=== PATIENT | male | born 1985 | race Caucasian/White ===

== ENCOUNTER 2017-02-02 03:46 | Emergency (ER) | payer SELFPAY ==
--- NOTE | ~2017-02-02 | ER ---
PATIENT'S NAME: EZIO LEE [facility] AGE: 31 Y [address] ROOM: [place] [address] LOCATION: [facility] ADMIT DATE: 02/02/2017 ER/Outpatient Report DISCHARGE DATE: FAMILY PHYSICIAN: PHYSICIAN, NO ATTENDING PHYSICIAN: Isacc Rahman Admission date and time documented in the medical record. I saw the patient at 0400 hours. CHIEF COMPLAINT: Left ear pressure and head pressure. HISTORY OF PRESENT ILLNESS: This patient is a 31-year-old male, who comes in with left ear pressure that he has had for about a week. Tonight it seemed to be worse, involving the whole left side of his head. He feels dizzy, lightheaded and sleepy. The patient has been under a lot of stress with situational disturbances. He has been drinking alcohol tonight. No chest pain, shortness of breath, abdominal pain, nausea, vomiting, diarrhea, or urinary complaints. No headache, eyes, ears, nose, throat, neck, or spine pain. No recent colds, coughs, flus, fever, chills, or sweats. The patient has a history of neurocardiogenic syncope. No endocrine problems. No psych issues other than stress and anxiety. HOME MEDICATIONS: None. ALLERGIES: NONE. SOCIAL HISTORY: The patient smokes half a pack of cigarettes per day. Does drink alcohol. SIGNIFICANT PAST MEDICAL HISTORY: Tobacco abuse, neurocardiogenic syncope, esophageal stricture, anxiety, stress. OPERATIONS: Inguinal herniorrhaphy and esophageal dilatation. REVIEW OF SYSTEMS: All systems reviewed by me are negative with the exception of those discussed in the history of present illness. PHYSICAL EXAMINATION: PATIENT'S NAME: EZIO LEE [facility] AGE: 31 Y [address] ROOM: [place] [id number] LOCATION: [facility] ADMIT DATE: 02/02/2017 ER/Outpatient Report DISCHARGE DATE: FAMILY PHYSICIAN: PHYSICIAN, NO ATTENDING PHYSICIAN: Isacc Rahman VITAL SIGNS: Temperature 97.8, pulse 84, blood pressure 129/77, O2 saturation on room air is 96%. HEAD: Normocephalic. EYES: Extraocular muscles intact. PERRL. EARS: Right TM clear. Left canal is inflamed, swollen. Drums intact. NOSE: Clear. THROAT: Clear. TEETH AND JAW: Intact. NECK: No nuchal rigidity. No thyromegaly or cervical lymphadenopathy. SPINE: Negative. LUNGS: Clear. No rales, rhonchi, or wheezes. HEART: Regular. Pulses are palpable. ABDOMEN: Soft, nondistended, nontender. Good bowel tones. No organomegaly or abnormal mass palpable. EXTREMITIES: Moves all 4 extremities. No peripheral edema, cyanosis, or deformity. NEURO: Cranial nerves intact. No lateralized sign. The patient is awake, alert, cooperative. Motor and sensory intact. NIH Stroke scale is 0. VASCULAR: Intact. SKIN: Clear. DIAGNOSTIC STUDIES: Did draw some blood. Following the draw, the patient stated that he was deathly ill of needles, got sweaty, lightheaded, bradycardic and had a near syncopal episode. The patient refused an IV fluids. We did elevate his legs, cooling down and he pretty much recovered. We did take him back for a CT scan of the brain. CT scan of the brain showed no abnormalities. There was no hemorrhage, midline shift, mass effect, or skull fracture. CT scan was read by Radiology, see dictated transcribed report. Laboratory: CMS was normal except for slightly low calcium of 8.4. Medical blood alcohol was elevated 0.25. CPK was normal 88. Point of care cardiac enzymes were normal. White count was 9600, 60 segs, 28 lymphs, 7 monos, 4 eos, 1 baso. Hemoglobin is 15.6, hematocrit 46.0, platelet count was 277,000. IMPRESSION: 1. Left external otitis. 2. Episode of lightheadedness, bradycardia, diaphoresis with near syncope following a blood draw. The patient does have a fear of needles. The patient also has a history of neurocardiogenic syncope. 3. Tobacco abuse. 4. Acute alcohol intoxication abuse. PATIENT'S NAME: EZIO LEE [facility] AGE: 31 Y [address] ROOM: [place], [place] [address] LOCATION: [facility] ADMIT DATE: 02/02/2017 ER/Outpatient Report DISCHARGE DATE: FAMILY PHYSICIAN: PHYSICIAN, NO ATTENDING PHYSICIAN: Isacc Rahman 5. Stress. 6. Anxiety. PLAN: The patient was discharged from the emergency department. Observation. Activity as tolerated. Stop smoking. Stop drinking. Cortisporin otic drops use as directed 3 times a day for 7 days. Cipro 500 mg b.i.d. #14. Follow up with personal physician as needed. Discussion ensued with the patient concerning my findings and recommendations, he understands. MD KRUNAL WOODWARD/naseeml /[id number] d: 02/02/17 0545 t: 02/02/17 1818, OUTPATIENT REPORT
[2017-02-02 04:28] LABS: BASOPHIL # 0.1 K/uL (0.0-0.2); BASOPHIL % 0.8 %; EOSINOPHIL # 0.4 K/uL (0.0-0.5); EOSINOPHIL % 4.3 %; HEMOGLOBIN 15.6 g/dL (12.0-17.0); IMMATURE GRANULOCYTE % 0.3 %; LYMPHOCYTE # 2.7 K/uL (0.8-4.0); LYMPHOCYTE % 27.8 %; MCH 29.9 pg (27.0-34.0); MCHC 33.9 gm/dL (32.0-36.5); MCV 88.3 fl (83.0-98.0); MONOCYTE # 0.7 K/uL (0.0-1.0); MONOCYTE % 7.2 %; NEUTROPHIL # (ANC) 5.7 K/uL (1.4-9.0); NEUTROPHIL % 59.6 %; NRBC % 0 /100WBC (0-0.00); PLATELET COUNT 277 K/uL (150-450); RBC 5.21 M/uL (4.00-6.00); RDW-CV 12.5 % (11.9-14.6); WBC 9.6 K/uL (4.0-11.0)
[2017-02-02 04:46] LABS: ALBUMIN 3.3 gm/dL (3.5-5.0); ALK PHOS 126 IU/L (33-138); ALT 29 IU/L (12-78); ANION GAP 12.9 (10.0-19.0); AST 15 IU/L (10-40); BLOOD UREA NITROGEN 10 mg/dL (6-24); CALCIUM 8.4 mg/dL (8.5-10.5); CHLORIDE 108 mMol/L (96-110); CO2 27 mMol/L (22-32); CREATININE 0.8 mg/dL (0.6-1.3); ESTIMATED GFR (MDRD EQUATION) > 60; POTASSIUM 3.9 mMol/L (3.7-5.1); SODIUM 144 mMol/L (135-145); TOTAL BILIRUBIN 0.3 mg/dL (0.0-1.5); TOTAL PROTEIN 7.3 g/dL (6.0-8.4)
[2017-02-02 04:49] LABS: CPK 88 IU/L (35-332)
== END 2017-02-02 05:30 | disposition disaster alternative care site (69) ==
LOC: GMED 03:46
PROVIDERS: Emergency Medicine
DX: H60.92 Unspecified otitis externa, left ear (principal); F10.129 Alcohol abuse with intoxication, unspecified; R55 Syncope and collapse; R00.1 Bradycardia, unspecified; F41.9 Anxiety disorder, unspecified; F43.9 Reaction to severe stress, unspecified; F17.210 Nicotine dependence, cigarettes, uncomplicated; Z88.8 Allergy status to other drugs, medicaments and biological substances; Z98.890 Other specified postprocedural states
CPT/HCPCS: G0480

== ENCOUNTER 2017-03-20 14:33 | Emergency (ER) | payer SELFPAY ==
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
== END 2017-03-20 15:56 | disposition disaster alternative care site (69) ==
LOC: GACC 14:33
DX: M25.562 Pain in left knee (principal); F17.210 Nicotine dependence, cigarettes, uncomplicated; Z98.890 Other specified postprocedural states